=== PATIENT | male | born 1985 | race Two or more races ===

== ENCOUNTER 2016-11-13 10:47 | Emergency (ER) | payer BC ==
[~2016-11-13] VITALS: Ht 167.6 cm; Wt 95.3 kg
[2016-11-13 10:53] VITALS: BP 128/85
== END 2016-11-13 11:19 | disposition home or self-care (01) ==
LOC: ER 10:49
DX: J06.9 Acute upper respiratory infection, unspecified (principal); F17.200 Nicotine dependence, unspecified, uncomplicated
CPT/HCPCS: 99283; A4606; Z7610